=== PATIENT | female | born 1970 | race Caucasian/White ===

== ENCOUNTER 2021-10-17 14:41 | Outpatient (CLI) | payer OTHER | END 2021-10-17 14:42 | disposition home or self-care (01) | LOC: CSHULT 14:41 | PROVIDERS: ATTEND Student in an Organized Health Care Education/Training Program | DX: E01.0 Iodine-deficiency related diffuse (endemic) goiter (principal); Z12.31 Encounter for screening mammogram for malignant neoplasm of breast | CPT/HCPCS: 76536; 77067 ==